=== PATIENT | male | born 1950 | race Caucasian/White ===

== ENCOUNTER 2018-06-27 17:06 | Emergency (ER) | payer OTHER, MEDICARE ==
[~2018-06-27] VITALS: Ht 177.8 cm; Wt 86.2 kg
[~2018-06-27 17:06] MED LIST: OMEP20CA4; ZOLP10TA2
--- NOTE | 2018-06-27 17:08 | NUR ---
Patient to ER bed 08 to gown for evaluation. Side rails up.
--- NOTE | 2018-06-27 17:08 | NUR ---
Pt brought by self ,A&Ox4, pt presents to ER with pain on lower back post mechanical fall at kitchen, pt denies KO, skin pink and warm, cap refill <3, VS WNL,respirations even and unlabored.
[2018-06-27 17:10] VITALS: BP_SYST 163
--- NOTE | 2018-06-27 17:19 | NUR ---
Dr Valdivia at bedside examining patient.
[2018-06-27] MEDS: KETOROLAC TROMETHAMINE 60 MG/2 ML VIAL IM ONE (17:39)
[2018-06-27 18:30] VITALS: BP_SYST 141
--- NOTE | 2018-06-27 18:30 | NUR ---
Patient given written and verbal discharge instructions and verbalizes understanding. ER MD discussed with patient the results and treatment provided. Patient in stable condition. ID arm band removed. Rx of NORCO AND FLEXERIL given. Patient educated on pain management and to follow up with PMD. Pain Scale 4/10; TOLERABLE VERBALIZED. NO OBJECTIVE S/SX OF PAIN OBSERVED. Opportunity for questions provided and answered. Medication side effect fact sheet provided. PATIENT IN NO ACUTE DISTRESS AND IN GOOD CONDITION. PT NOTED WITH A CANE AND WALKING WITH STABLE GAIT.
== END 2018-06-27 18:30 | disposition home or self-care (01) ==
LOC: SED 17:06
DX: S33.5XXA Sprain of ligaments of lumbar spine, initial encounter (principal); M47.896 Other spondylosis, lumbar region; Z88.8 Allergy status to other drugs, medicaments and biological substances; W01.0XXA Fall on same level from slipping, tripping and stumbling without subsequent striking against object, initial encounter; Y93.89 Activity, other specified; Y92.89 Other specified places as the place of occurrence of the external cause; Y99.8 Other external cause status
CPT/HCPCS: 72100; 96372; 99283; J1885

== ENCOUNTER 2020-01-27 13:55 | Emergency (ER) | payer OTHER, MEDICARE ==
[~2020-01-27] VITALS: Ht 177.8 cm; Wt 86.2 kg
[2020-01-27 14:07] VITALS: BP_SYST 121
[2020-01-27] MEDS ORDERED: MORPHINE SULFATE 10 MG/ML VIAL IM ONE (15:00)
[2020-01-27] MEDS ORDERED: ONDANSETRON 4 MG ODT TAB PO ONE (15:00)
[2020-01-27] MEDS ORDERED: KETOROLAC TROMETHAMINE 30 MG VIAL IM ONE (16:45)
[2020-01-27] MEDS ORDERED: CYCLOBENZAPRINE HCL 10 MG TABLET (FLEXERIL) PO ONE (16:45)
[2020-01-27 16:53] VITALS: BP_SYST 121
== END 2020-01-27 16:53 | disposition home or self-care (01) ==
LOC: SED 13:55
DX: S39.012A Strain of muscle, fascia and tendon of lower back, initial encounter (principal); Z88.1 Allergy status to other antibiotic agents; Z88.8 Allergy status to other drugs, medicaments and biological substances; W01.0XXA Fall on same level from slipping, tripping and stumbling without subsequent striking against object, initial encounter; Y93.89 Activity, other specified; Y92.89 Other specified places as the place of occurrence of the external cause; Y99.8 Other external cause status
CPT/HCPCS: 72100; 96372; 99284; J1885; J2270; Q0162

== ENCOUNTER 2020-11-01 17:11 | Emergency (ER) | payer OTHER, MEDICARE ==
[~2020-11-01] VITALS: Ht 177.8 cm; Wt 81.6 kg
[2020-11-01 17:15] VITALS: BP_SYST 127
[2020-11-01] MEDS ORDERED: MORPHINE SULFATE 10 MG/ML VIAL IM ONE (17:30)
[2020-11-01 19:09] LABS: BASOPHILS % (AUTO) 0.5 % (0.0-2.0); EOSINOPHILS # (AUTO) 0.1 K/uL (0.0-0.4); EOSINOPHILS % (AUTO) 1.8 % (0.0-4.0); HEMATOCRIT 45.3 % (36-54); HEMOGLOBIN 15.3 g/dL (14.0-18.0); LYMPHOCYTES # (AUTO) 0.8 K/uL (1.0-5.5); LYMPHOCYTES % (AUTO) 13.4 % (20.5-51.5); MEAN CORPUSCULAR HEMOGLOBIN 31 pg (27-31); MEAN CORPUSCULAR HGB CONC 34 % (32-36); MEAN CORPUSCULAR VOLUME 91 fL (79.0-98.0); MONOCYTES # (AUTO) 0.5 K/uL (0.0-1.0); NEUTROPHILS # (AUTO) 4.4 K/uL (1.8-7.7); NEUTROPHILS % (AUTO) 76.3 % (40.0-70.0); PLATELET COUNT (AUTO) 154 K/uL (130-430); RED BLOOD CELL COUNT(AUTO) 4.96 MIL/uL (4.2-6.2); WHITE BLOOD COUNT (AUTO) 5.8 K/uL (4.8-10.8)
[2020-11-01 19:19] LABS: CALCIUM 8.3 mg/dL (8.4-11.0); CREATININE 1.18 mg/dL (0.55-1.30); POTASSIUM 4.5 mmol/L (3.5-5.1)
[2020-11-01 19:25] LABS: C-REACTIVE PROTEIN QUANT 2.1 mg/dL (0-0.5)
[2020-11-01 19:29] LABS: ALBUMIN 3.1 g/dL (3.4-4.8); TOTAL BILIRUBIN 0.3 mg/dL (0.0-1.0)
[2020-11-01] MEDS ORDERED: MORPHINE 4 MG INJ. 4 MG/ML VIAL IM ONE (19:30)
[2020-11-01 19:38] LABS: BILIRUBIN,URINE NEGATIVE (NEGATIVE); BLOOD, URINE 2+ (NEGATIVE); CLARITY/URINE CLEAR (CLEAR); COLOR,URINE YELLOW (YELLOW); GLUCOSE,URINE NEGATIVE (NEGATIVE); KETONES,URINE NEGATIVE (NEGATIVE); LEUKOCYTE ESTERASE ,URINE NEGATIVE (NEGATIVE); NITRITE, URINE NEGATIVE (NEGATIVE); PH,URINE 5.5 (5.0-8.0); PROTEIN URINE NEGATIVE (NEGATIVE); UROBILINOGEN,URINE 0.2 (0.2-1.0)
[2020-11-01 19:56] LABS: ERYTHROCYTE SEDIMENTATION RATE 14 MM/HR (0-15)
[2020-11-01 19:56] LABS: BACTERIA,URINE FEW /HPF (None Seen); MUCUS,URINE 1+ /LPF (None Seen); WBC,URINE 0-3 /HPF (0-3)
[2020-11-01 20:10] VITALS: BP_SYST 127
== END 2020-11-01 20:10 | disposition home or self-care (01) ==
LOC: SED 17:11
DX: G89.29 Other chronic pain (principal); M54.5 Low back pain; Z88.8 Allergy status to other drugs, medicaments and biological substances; Z79.899 Other long term (current) drug therapy; W18.39XA Other fall on same level, initial encounter; Y93.89 Activity, other specified; Y92.89 Other specified places as the place of occurrence of the external cause; Y99.8 Other external cause status
CPT/HCPCS: 36415; 72128; 72131; 76376; 80053; 81000; 85025; 85651; 86140; 96372; 99285; J2270 ×2

== ENCOUNTER 2020-12-30 11:54 | Inpatient (IN) | payer OTHER, MEDICARE, SELFPAY ==
[~2020-12-30] VITALS: Ht 177.8 cm; Wt 81.6 kg
[2020-12-30 12:10] VITALS: BP_SYST 148
--- NOTE | 2020-12-30 12:14 | NUR ---
Patient to ER bed 2 to gown for evaluation. Side rails up. Report given to Carmen MEANS.
[2020-12-30] MEDS ORDERED: MORPHINE 4 MG INJ. 4 MG/ML VIAL IM ONE (12:15)
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
--- NOTE | 2020-12-30 12:25 | NUR ---
ER DR. KELLY AT THE BEDSIDE EXAMINING PT
[2020-12-30] MEDS ORDERED: KETOROLAC TROMETHAMINE 30 MG VIAL IVP ONE (13:15)
[2020-12-30 13:32] LABS: BASOPHILS % (AUTO) 0.1 % (0.0-2.0); EOSINOPHILS % (AUTO) 0.4 % (0.0-4.0); HEMATOCRIT 45.6 % (36-54); HEMOGLOBIN 15.1 g/dL (14.0-18.0); LYMPHOCYTES # (AUTO) 0.4 K/uL (1.0-5.5); LYMPHOCYTES % (AUTO) 4.5 % (20.5-51.5); MEAN CORPUSCULAR HEMOGLOBIN 31 pg (27-31); MEAN CORPUSCULAR HGB CONC 33 % (32-36); MEAN CORPUSCULAR VOLUME 93 fL (79.0-98.0); MONOCYTES # (AUTO) 0.5 K/uL (0.0-1.0); MONOCYTES % (AUTO) 5.9 % (1.7-9.3); NEUTROPHILS # (AUTO) 7.6 K/uL (1.8-7.7); NEUTROPHILS % (AUTO) 89.1 % (40.0-70.0); PLATELET COUNT (AUTO) 107 K/uL (130-430); RED BLOOD CELL COUNT(AUTO) 4.93 MIL/uL (4.2-6.2); RED CELL DISTRIBUTION WIDTH 16.5 % (9.0-15.0); WHITE BLOOD COUNT (AUTO) 8.5 K/uL (4.8-10.8)
--- NOTE | 2020-12-30 13:37 | NUR ---
Patient transported to radiology via GURNEY, accompanied by STAFF.
--- NOTE | 2020-12-30 13:39 | NUR ---
PT REQUESTING STRAIGHT CATH DUE TO URGE TO VOID. PT STATES HE CANNOT USE THE URINAL WHILE LAYING DOWN AND IS REFUSING TO STAND OR TURN DUE TO PAIN.
[2020-12-30 13:45] LABS: CALCIUM 7.9 mg/dL (8.4-11.0); CREATININE 0.98 mg/dL (0.55-1.30); POTASSIUM 3.8 mmol/L (3.5-5.1)
[2020-12-30 13:51] LABS: ALBUMIN 2.4 g/dL (3.4-4.8); TOTAL BILIRUBIN 0.8 mg/dL (0.0-1.0)
[2020-12-30] MEDS ORDERED: KETOROLAC TROMETHAMINE 60 MG/2 ML VIAL IM ONE (14:06)
--- NOTE | 2020-12-30 15:12 | NUR ---
COVID SWAB PERFORMED AT BEDSIDE
[2020-12-30] MEDS ORDERED: MORPHINE 4 MG INJ. 4 MG/ML VIAL IVP ONE (15:30)
[2020-12-30] MEDS ORDERED: HYDROcodone/ACETAMIN 10-325 MG TAB PO ONE (16:00)
--- NOTE | 2020-12-30 16:12 | NUR ---
PT PROVIDED WITH LUNCH TRAY PER REQUEST
--- NOTE | 2020-12-30 16:40 | NUR ---
PT REQUESTING LU CATH FOR VOIDING, REFUSING TO USE URINAL WHILE IN BED, UNABLE TO AMBULATE DUE TO PAIN AT THIS TIME. MADE AWARE
--- NOTE | 2020-12-30 16:40 | NUR ---
# 16 FR Hinojosa catheter with use of sterile technique. Immediate return of 10 cc CLEAR, YELLOW urine noted. Bedside drainage bag placed below level of bladder. Urine sample collected and sent to lab. Pt tolerated procedure WELL. Patient arrived with hinojosa in place, changed due to standard of practice prior to admission. Patient unable to toilet self.
[2020-12-30] MEDS ORDERED: METH4TAB17 PO (17:18)
[2020-12-30] MEDS ORDERED: TAMS-11 PO (17:18)
[2020-12-30] MEDS ORDERED: HYDR-3927 PO (17:18)
--- NOTE | 2020-12-30 17:18 | NUR ---
Medication reconciliation completed with information provided by PATIENT. Any prior medication reconciliation on file was reviewed and corrected.
--- NOTE | 2020-12-30 17:58 | NUR ---
Patient will be admitted to care of DR. RODRIGUEZ. Admitted to MS unit. Will go to room 111B. Belongings list completed. Complete and up to date summary report printed. SBAR report to be given at bedside with opportunity for questions.
--- NOTE | 2020-12-30 18:03 | NUR ---
Admission Note Received patient from ER with diagnosis of intractable back pain . Initial Plan of Care discussed-patient verbalized understanding. Family at bedside. Oriented to room, call light, pain management and safety.
[2020-12-30 18:22] VITALS: BP_SYST 116
[2020-12-30 19:00] VITALS: BP_SYST 116
--- NOTE | 2020-12-30 19:15 | NUR ---
pt.change of shift.pt.preents admit dx;s/p fall.pt.presents bedrest status.pt,presents hinojosa cath.pt.presents iv access intact. location lt.forearm.iv lock. general status stable.respiratory status stable;unlabored@room air.call light/telephone w/in access of the pt.
[2020-12-30 20:00] VITALS: BP_SYST 116
--- NOTE | 2020-12-30 20:00 | NUR ---
pt.assessed.v/s assessed values wnl.i have apprised the pt.that snacks/beverages are available w/in the shift.no requests posited @this hour. pt.has presents lower extremity weakness.pt.presents erythema location rt.ankle region.cutaneous integrity intact.pt.assessed for cleanliness.pt.repositioned.hinojosa cath intact to assess the placement of the foely cath.general status stable.respiratory status stable;unlabored:02-sat%=98%.call light/telephone placed w/in access of the pt.
--- NOTE | 2020-12-30 22:00 | NUR ---
pt.assessed.pt.presents quiescent affect;calm.pt.assessed for cleanliness pt.repositioned.hinojosa cath intact urine content present. iv access intact.no c/o pain,nausea.no requests posited@this hour.call light/telephone placed w/in access of the pt.
[2020-12-30] MEDS ORDERED: traZODone HCL 50 MG TABLET (DESYREL) PO PRN (23:15)
[2020-12-31] VITALS: BP_SYST 112
--- NOTE | 2020-12-31 | NUR ---
pt.assessed.v/s assessed values wnl.no c/o pain,nausea.hinojosa cath intact urine content present.pt.repositioned.call light/ telephone placed w/in access of the pt.
--- NOTE | 2020-12-31 02:00 | NUR ---
pt.assessed.hinojosa cath intact urine content presents.pt.presents quiescent affect;calm,somnolent.pt.repositioned.no c/o pain,nausea.no requests posited@this hour.call light/telephone placed w/in access of the pt.
--- NOTE | 2020-12-31 04:00 | NUR ---
pt.assessed.pt.presents quiescent affect;calm,somnolent.per flacc pain mgx pt.absent facial grimaces/body posturing. pt.assessed for cleanliness.pt.repositioned.general status.respiratory status stable.call light/telephone placed w/in access of the pt.
--- NOTE | 2020-12-31 06:21 | NUR ---
pt.assessed.pt.assessed for cleanliness.pt.repositioned.pt.stated pain present but refused po medication;norco@this hour. hinojosa cath intact urine content present.no requests posited@this hour.call light/telephone placed w/in access of the pt.
--- NOTE | 2020-12-31 07:44 | NUR ---
ATTENDING MD DR HEATH WAS PAGED DIRECTLY, RE: MEDICATIONS.
[2020-12-31 08:00] VITALS: BP_SYST 123
[2020-12-31] MEDS ORDERED: NALOXONE HCL 0.4 MG/ML AMP (NARCAN) IVP PRN (08:00)
--- NOTE | 2020-12-31 09:29 | NUR ---
Nutrition Update Chaparro Scale 17 noted. Pt admitted for intractable back pain. Diet: regular BMI: 25.8 kg/m2 RD to follow per nutrition care standards.
--- NOTE | 2020-12-31 11:35 | NUR ---
Note Pt was assisted in sitting up in bed for breakfast. Pain tolerable if not moving in bed. Pt worked with PT and now resting in bed. Miramontes catheter intact and draining. Call light within reach.
[2020-12-31 12:29] VITALS: BP_SYST 116
--- NOTE | 2020-12-31 12:50 | NUR ---
Note Pt's at bedside. Pt was given 2 cups of prune juice to help with constipation.
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
[2020-12-31 16:17] VITALS: BP_SYST 121
--- NOTE | 2020-12-31 17:25 | NUR ---
NOTE Dr Carter on the floor to assess pt and check labs/tests at this time.
[2020-12-31] MEDS ORDERED: OXYCODONE/ACETAMINOPHEN 5-325 TABLET PO PRN (17:45)
[2020-12-31] MEDS ORDERED: ONDANSETRON HCL 4 MG/2 ML VIAL IVP PRN (17:45)
--- NOTE | 2020-12-31 18:30 | NUR ---
Note Pt lying in bed after eating his dinner. States he feels like bowel movement is about to happen, just difficult to pass at this time. Pt was checked on q1' and PRN all shift for needs and care. Pt's bed in low position and bed alarm on. Miramontes catheter intact and draining. Call light within reach.
[2020-12-31] MEDS: BISACODYL 5 MG TABLET.DR (DULCOLAX) PO PRN (18:46)
[2020-12-31] MEDS: DOCUSATE SODIUM 100 MG CAPSULE PO SCH (18:46)
--- NOTE | 2020-12-31 19:10 | NUR ---
OPENING NOTES RECEIVED PATIENT RESTING IN BED, NO SIGNS OF DISTRESS NOTED. LU CATHETER DRAINING BY GRAVITY, NO KINKS, NO LOOPS, BAG NOT TOUCHING THE FLOOR. CALL LIGHT WITHIN REACH, PATIENT DEMONSTRATES PROPER CALL LIGHT USAGE, BED AT LOWEST POSITION, BED ALARM ON, BED LOCKED. FAMILY AT BEDSIDE. FALL, ASPIRATION, SAFETY, AND RESPIRATORY PRECAUTIONS IN PLACE. WILL CONTINUE TO MONITOR.
[2020-12-31 20:00] VITALS: BP_SYST 126
[2020-12-31] MEDS: NORMAL SALINE 5 ML DISP.SYRIN IVF SCH (21:44)
[2020-12-31] MEDS ORDERED: NORMAL SALINE 5 ML DISP.SYRIN IVF SCH (22:00)
[2021-01-01 00:08] VITALS: BP_SYST 106
--- NOTE | 2021-01-01 05:08 | NUR ---
CONSULT: CONSULT CALLED FOR DR. MARKHAM I SPOKE WITH MISAEL TRAN REASON FOR CONSULT: INTRACTABLE BACK PAIN REQUESTING CONSULT: Roro CAMACHO [employer] OPERATOR PHONE NUMBER: [phone]
[2021-01-01] MEDS: NORMAL SALINE 5 ML DISP.SYRIN IVF SCH ×2 (05:44→21:43)
[2021-01-01] MEDS: HYDROcodone/ACETAMIN 10-325 MG TAB PO PRN (05:48)
--- NOTE | 2021-01-01 06:41 | NUR ---
CLOSING NOTES PATIENT RESTING IN BED, NO SIGNS OF DISTRESS NOTED. LU CATHETER DRAINING BY GRAVITY, NO KINKS, NO LOOPS, BAG NOT TOUCHING THE FLOOR. CALL LIGHT WITHIN REACH, PATIENT DEMONSTRATED PROPER CALL LIGHT USAGE, BED AT LOWEST POSITION, BED ALARM ON, BED LOCKED. FALL, ASPIRATION, SAFETY, AND RESPIRATORY PRECAUTIONS IN PLACE THROUGHOUT SHIFT. ALL NEEDS MET THROUGHOUT SHIFT. WILL ENDORSE CARE TO ONCOMING SHIFT.
[2021-01-01 07:00] LABS: BASOPHILS % (AUTO) 0.4 % (0.0-2.0); EOSINOPHILS % (AUTO) 0.5 % (0.0-4.0); HEMATOCRIT 42.5 % (36-54); HEMOGLOBIN 14.7 g/dL (14.0-18.0); LYMPHOCYTES # (AUTO) 0.4 K/uL (1.0-5.5); MEAN CORPUSCULAR HEMOGLOBIN 32 pg (27-31); MEAN CORPUSCULAR HGB CONC 35 % (32-36); MEAN CORPUSCULAR VOLUME 92 fL (79.0-98.0); MONOCYTES # (AUTO) 0.3 K/uL (0.0-1.0); MONOCYTES % (AUTO) 5.1 % (1.7-9.3); NEUTROPHILS # (AUTO) 5.3 K/uL (1.8-7.7); PLATELET COUNT (AUTO) 101 K/uL (130-430); RED BLOOD CELL COUNT(AUTO) 4.62 MIL/uL (4.2-6.2); RED CELL DISTRIBUTION WIDTH 16.3 % (9.0-15.0)
[2021-01-01 07:34] LABS: CALCIUM 8.2 mg/dL (8.4-11.0); CREATININE 0.98 mg/dL (0.55-1.30); POTASSIUM 4.3 mmol/L (3.5-5.1)
[2021-01-01 08:00] VITALS: BP_SYST 112
[2021-01-01] MEDS: methylPREDNISolone 4 MG TABLET PO SCH (08:20)
[2021-01-01] MEDS: PANTOPRAZOLE SODIUM 40 MG TAB PO SCH (08:20)
[2021-01-01] MEDS: TAMSULOSIN HCL 0.4 MG CAP PO SCH (08:20)
[2021-01-01] MEDS: LIDOCAINE PATCH 5% 1 EA TP SCH (08:20)
[2021-01-01] MEDS ORDERED: OMEPRAZOLE Non-Formulary 20 MG CAPSULE.DR PO SCH (09:00)
--- NOTE | 2021-01-01 09:30 | NUR ---
rounds dr zacarias called and inquired re the patient.awating to come and see patient.
[2021-01-01 12:23] VITALS: BP_SYST 111
--- NOTE | 2021-01-01 15:03 | NUR ---
Dietitian Recommendations * Regular, lactose-free diet LUIS RD Please refer to Nutrition Assessment for details. Addendum: 01/01/21 at [address] Amended: Links added.
[2021-01-01 15:16] VITALS: BP_SYST 115
--- NOTE | 2021-01-01 16:36 | NUR ---
Patient referred to [facility] for acute [facility]. Received a call from Dee at [facility] [phone]. She stated pt is very low level for acute rehab. They do not have a bed until Monday- they will re evaluate the patient on Monday.
--- NOTE | 2021-01-01 18:30 | NUR ---
closing notes pt resting quietly at this time.call light within reached. bed to the lowest position.
[2021-01-01 20:00] VITALS: BP_SYST 118
[2021-01-01] MEDS: DOCUSATE SODIUM 100 MG CAPSULE PO SCH (21:43)
[2021-01-01] MEDS: ACETAMINOPHEN 325 MG TABLET PO PRN (21:43)
--- NOTE | 2021-01-02 00:10 | NUR ---
PATIENT RESTING, EYES CLOSED. NO DISTRESS NOTED. CALL LIGHT WITHIN REACH. WILL CONTINUE TO MONITOR.
[2021-01-02 00:55] VITALS: BP_SYST 113
[2021-01-02] MEDS: NORMAL SALINE 5 ML DISP.SYRIN IVF SCH ×3 (05:59→20:13)
--- NOTE | 2021-01-02 06:26 | NUR ---
CLOSING NOTES PATIENT RESTING IN BED, NO SIGNS OF DISTRESS NOTED. LU CATHETER DRAINING BY GRAVITY, NO KINKS, NO LOOPS, BAG NOT TOUCHING THE FLOOR. CALL LIGHT WITHIN REACH, PATIENT DEMONSTRATED PROPER CALL LIGHT USAGE, BED AT LOWEST POSITION, BED ALARM ON, BED LOCKED. FALL, ASPIRATION, SAFETY, AND RESPIRATORY PRECAUTIONS IN PLACE THROUGHOUT SHIFT. WILL ENDORSE CARE TO ONCOMING SHIFT.
--- NOTE | 2021-01-02 07:56 | NUR ---
OPENING NOTE RECEIVED REPORT FROM NIGHT RN. PATIENT IS RESTING IN BED, ON ROOM AIR AND TOLERATING WELL WITH NO SIGNS OF SHORTNESS OF BREATH NOTED. IV IS PATENT, SALINE LOCKED WITH NO SIGNS OF INFILTRATION NOTED. COMPLAINING OF MILD PAIN, REQUESTING TYLENOL. BED LOCKED AND IN LOWEST POSITION. CALL LIGHT WITHIN REACH. WILL CONTINUE TO MONITOR.
[2021-01-02 08:00] VITALS: BP_SYST 130
[2021-01-02] MEDS: PANTOPRAZOLE SODIUM 40 MG TAB PO SCH (08:05)
[2021-01-02] MEDS: methylPREDNISolone 4 MG TABLET PO SCH (08:05)
[2021-01-02] MEDS: TAMSULOSIN HCL 0.4 MG CAP PO SCH (08:05)
[2021-01-02] MEDS: LIDOCAINE PATCH 5% 1 EA TP SCH (08:05)
[2021-01-02] MEDS: ACETAMINOPHEN 325 MG TABLET PO PRN (08:06)
[2021-01-02 12:07] VITALS: BP_SYST 108
[2021-01-02 15:25] VITALS: BP_SYST 104
--- NOTE | 2021-01-02 18:28 | NUR ---
CLOSING NOTE PATIENT IS RESTING IN BED, ON ROOM AIR AND TOLERATING WELL WITH NO SIGNS OF SHORTNESS OF BREATH NOTED. IV IS PATENT, SALINE LOCKED WITH NO SIGNS OF INFILTRATION NOTED. NO COMPLAINTS OF PAIN AT THIS TIME. BED LOCKED AND IN LOWEST POSITION. CALL LIGHT WITHIN REACH. WILL ENDORSE TO NIGHT NURSE.
--- NOTE | 2021-01-02 19:40 | NUR ---
OPENING NOTE RCVD PT FROM DAYSHIFT RN. PT AWAKE ALERT AND ORIENTED X4. BREATHING ON ROOM AIR NO SIGNS OF DISTRESS. IV ON LAC #20 INFUSING ORDERED FLUIDS. NO INFILTRATION NOTED. PT REPORTED HAD A BOWEL MOVEMENT YESTERDAY. LU DRAINING TO GRAVITY. BED LOCKED IN LOWEST POSITION. CALL LIGHT WITH PT. WILL CONTINUE TO MONITOR.
[2021-01-02 20:00] VITALS: BP_SYST 112
[2021-01-02] MEDS: DOCUSATE SODIUM 100 MG CAPSULE PO SCH (20:13)
--- NOTE | 2021-01-02 20:40 | NUR ---
RN NOTE PT VITAL SIGNS STABLE. NO S/S OF DISTRESS AT THIS TIME. PT REQUEST PAIN MEDICATION FOR BACK PAIN. WILL ADMINISTER AND REASSESS AND MONITOR.
[2021-01-02] MEDS: ZOLPIDEM TARTRATE 5 MG TABLET PO PRN (22:50)
--- NOTE | 2021-01-02 23:05 | NUR ---
RN NOTE PT REQUEST SLEEPING MEDICATION. WILL ADMINISTER AMBIEN PRN AND CONTINUE TO MONITOR PT.
[2021-01-03 00:10] VITALS: BP_SYST 104
--- NOTE | 2021-01-03 00:40 | NUR ---
RN NOTE VITAL SIGNS STABLE. WILL CTM.
[2021-01-03] MEDS: NORMAL SALINE 5 ML DISP.SYRIN IVF SCH ×3 (05:27→21:44)
--- NOTE | 2021-01-03 06:44 | NUR ---
CLOSING NOTE PT AWAKE ALERT AND ORIENTED X4 RESTING IN BED. NO S/S OF DISTRESS THROUGHOUT SHIFT. ALL NEEDS MET. BREATHING ON ROOM AIR NO SIGNS OF DISTRESS. IV ON LAC #20 INFUSING ORDERED FLUIDS. NO INFILTRATION NOTED. LU DRAINING TO GRAVITY. BED LOCKED IN LOWEST POSITION. CALL LIGHT WITH PT. WILL ENDORSE TO DAYSHIFT RN.
--- NOTE | 2021-01-03 07:40 | NUR ---
OPENING NOTE RECEIVED REPORT FROM NIGHT RN. PATIENT IS RESTING IN BED, ON ROOM AIR AND TOLERATING WELL WITH NO SIGNS OF SHORTNESS OF BREATH NOTED. IV IS PATENT, SALINE LOCKED WITH NO SIGNS OF INFILTRATION NOTED. BED LOCKED AND IN LOWEST POSITION. CALL LIGHT WITHIN REACH. WILL CONTINUE TO MONITOR.
[2021-01-03 08:00] VITALS: BP_SYST 121
[2021-01-03] MEDS: TAMSULOSIN HCL 0.4 MG CAP PO SCH (08:00)
[2021-01-03] MEDS: methylPREDNISolone 4 MG TABLET PO SCH (08:00)
[2021-01-03] MEDS: LIDOCAINE PATCH 5% 1 EA TP SCH (08:00)
[2021-01-03] MEDS: PANTOPRAZOLE SODIUM 40 MG TAB PO SCH (08:00)
[2021-01-03] MEDS: ACETAMINOPHEN 325 MG TABLET PO PRN ×2 (11:01→18:59)
[2021-01-03 11:29] VITALS: BP_SYST 120
[2021-01-03 15:31] VITALS: BP_SYST 113
--- NOTE | 2021-01-03 19:10 | NUR ---
REPORT RECEIVED FROM DAY SHIFT NURSE. PT IS RESTING COMFORTABLY IN BED. NO C/O PAIN OR DISCOMFORT. CALL LIGHT IS WITH PT AND BED ALARM IS ON.
--- NOTE | 2021-01-03 19:32 | NUR ---
PT C/O 5/10 LEFT CHEST PAIN. NO DIFFICULTY BREATHING NOTED. VSS. TEMP 97.0, HR 84, RR 18, BP 124/75 AND OXYGEN SAT ON ROOM AIR 97%. PT APPEARS ANXIOUS. WILL NOTIFY DR. Emma HEATH. Addendum: 01/03/21 at 2221 by Kathi Bright RN PT WAS GIVEN OXYGEN 2L/NC FOR COMFORT.
--- NOTE | 2021-01-03 19:35 | NUR ---
Paged Dr. Carter. Mekhi
--- NOTE | 2021-01-03 19:40 | NUR ---
DR. Emma HEATH CALLED BACK AND WAS INFORMED PT IS C/O 5/10 LEFT CHEST PAIN. PT'S VITAL SIGNS WERE READ TO DR. ONEILL. NEW ORDERS RECEIVED FRO STAT EKG, TROPONIN AND ONE TIME DOSE OF ASPIRIN 325MG PO.
[2021-01-03] MEDS ORDERED: ASPIRIN 325 MG TABLET PO ONE (19:45)
[2021-01-03 20:00] VITALS: BP_SYST 124
--- NOTE | 2021-01-03 20:42 | NUR ---
RESULTS OF EKG AND STAT TROPONIN WERE RELAYED TO DR. Emma HEATH. NO NEW ORDERS GIVEN. PT IS RESTING QUIETLY IN BED AND DENIES CHEST PAIN AT THIS TIME.
[2021-01-03] MEDS: GABAPENTIN 300 MG CAPSULE PO SCH (21:00)
[2021-01-03] MEDS: DOCUSATE SODIUM 100 MG CAPSULE PO SCH (21:43)
[2021-01-03] MEDS: ZOLPIDEM TARTRATE 5 MG TABLET PO PRN (21:49)
[2021-01-04 02:54] VITALS: BP_SYST 120
[2021-01-04] MEDS: NORMAL SALINE 5 ML DISP.SYRIN IVF SCH ×3 (05:41→20:46)
--- NOTE | 2021-01-04 06:31 | NUR ---
PT IS AWAKE AND RESTING COMFORTABLY IN BED. ALL PT'S NEEDS WERE ATTENDED TO. WILL ENDORSE TO DAY SHIFT NURSE.
[2021-01-04 06:46] LABS: BASOPHILS % (AUTO) 0.3 % (0.0-2.0); EOSINOPHILS % (AUTO) 0.5 % (0.0-4.0); HEMATOCRIT 40.2 % (36-54); HEMOGLOBIN 14.1 g/dL (14.0-18.0); LYMPHOCYTES # (AUTO) 0.4 K/uL (1.0-5.5); LYMPHOCYTES % (AUTO) 6.8 % (20.5-51.5); MEAN CORPUSCULAR HEMOGLOBIN 32 pg (27-31); MEAN CORPUSCULAR HGB CONC 35 % (32-36); MEAN CORPUSCULAR VOLUME 91 fL (79.0-98.0); MONOCYTES # (AUTO) 0.4 K/uL (0.0-1.0); MONOCYTES % (AUTO) 5.7 % (1.7-9.3); NEUTROPHILS # (AUTO) 5.5 K/uL (1.8-7.7); NEUTROPHILS % (AUTO) 86.7 % (40.0-70.0); PLATELET COUNT (AUTO) 126 K/uL (130-430); RED BLOOD CELL COUNT(AUTO) 4.41 MIL/uL (4.2-6.2); RED CELL DISTRIBUTION WIDTH 15.6 % (9.0-15.0); WHITE BLOOD COUNT (AUTO) 6.3 K/uL (4.8-10.8)
[2021-01-04 06:59] LABS: CREATININE 0.91 mg/dL (0.55-1.30); POTASSIUM 3.7 mmol/L (3.5-5.1); TOTAL BILIRUBIN 0.7 mg/dL (0.0-1.0)
--- NOTE | 2021-01-04 07:00 | NUR ---
ROUND Patient resting in the bed. No acute distress. Safety measure maintained. Call light within reached. Bed locked in low position, side rails up, bed alarm on. Continue to monitor.
--- NOTE | 2021-01-04 07:32 | NUR ---
OPENING NOTE Patient resting in the bed. No acute distress. Skin warm and dry to touch. SL intact to LAC, no redness, no swelling, patent. Discussed the safety issue, use call light when needs help, and plan of care, verbally understanding. Safety measure maintained. Call light within reached. Bed locked in low position, side rails up, bed alarm on. Will continue to monitor.
[2021-01-04 08:00] VITALS: BP_SYST 106
[2021-01-04] MEDS: methylPREDNISolone 4 MG TABLET PO SCH (08:44)
[2021-01-04] MEDS: LIDOCAINE PATCH 5% 1 EA TP SCH (08:44)
[2021-01-04] MEDS: TAMSULOSIN HCL 0.4 MG CAP PO SCH (08:45)
[2021-01-04] MEDS: PANTOPRAZOLE SODIUM 40 MG TAB PO SCH (08:45)
--- NOTE | 2021-01-04 08:54 | NUR ---
AM SCHEDULE MED GIVEN. PATIENT TOLERATED WELL.
[2021-01-04 11:31] VITALS: BP_SYST 125
--- NOTE | 2021-01-04 12:02 | NUR ---
PT WORKING WITH PATIENT AT THIS TIME.
--- NOTE | 2021-01-04 12:37 | NUR ---
cm note faxed updated PT notes to [facility] for admission reevaluation.
--- NOTE | 2021-01-04 15:19 | NUR ---
ROUND Patient resting in the bed and watching TV. No acute distress. Safety measure maintained. Call light within reached. Bed locked in low position, side rails up, bed alarm on. Continue to monitor.
[2021-01-04 15:20] VITALS: BP_SYST 115
--- NOTE | 2021-01-04 18:39 | NUR ---
SEEN AND EXAMINED BY LISSA CAMACHO WITH ORDER RECEIVED.
--- NOTE | 2021-01-04 18:44 | NUR ---
CLOSING NOTE Patient resting in the bed. No acute distress. Skin warm and dry to touch. SL intact to LAC, no redness, no swelling, patent. F/C intact, drain gravity. All needs met. Safety measure maintained. Call light within reached. Bed locked in low position, side rails up, bed alarm on. Will endorse to night nurse.
[2021-01-04 20:36] VITALS: BP_SYST 111
[2021-01-04] MEDS: DOCUSATE SODIUM 100 MG CAPSULE PO SCH (20:42)
[2021-01-04] MEDS: ACETAMINOPHEN 325 MG TABLET PO PRN (20:44)
[2021-01-04] MEDS: GABAPENTIN 300 MG CAPSULE PO SCH (20:46)
--- NOTE | 2021-01-04 20:46 | NUR ---
[facility] PATIENT DUE MEDICATIONS GIVEN. VITAL SIGNS STABLE. MEDICATED WITH TYLENOL FOR C/O BACK PAIN.
[2021-01-04] MEDS: ZOLPIDEM TARTRATE 5 MG TABLET PO PRN (22:21)
--- NOTE | 2021-01-04 22:21 | NUR ---
SLEEP PATIENT MEDICATED WITH AMBIEN PER PATIENT REQUEST. BED ALARM ON.
--- NOTE | 2021-01-05 00:15 | NUR ---
ROUNDS PATIENT RESTING IN BED. NO DISTRESS NOTED.
[2021-01-05 01:09] VITALS: BP_SYST 112
--- NOTE | 2021-01-05 02:25 | NUR ---
ROUNDS PATIENT BREATHING UNLABORED WITH INTERMITTENT SOFT SNORING NOTED.
--- NOTE | 2021-01-05 04:15 | NUR ---
ROUNDS PATIENT RESTING IN BED. BREATHING UNLABORED. BED ALARM ON.
[2021-01-05] MEDS: NORMAL SALINE 5 ML DISP.SYRIN IVF SCH ×2 (06:00→14:18)
--- NOTE | 2021-01-05 06:37 | NUR ---
CLOSING NOTES NO CHANGE IN PATIENT CONDITION. PATIENT NEEDS ATTENDED.
[2021-01-05 08:00] VITALS: BP_SYST 122
[2021-01-05] MEDS: LIDOCAINE PATCH 5% 1 EA TP SCH (08:27)
[2021-01-05] MEDS: methylPREDNISolone 4 MG TABLET PO SCH (08:27)
[2021-01-05] MEDS: TAMSULOSIN HCL 0.4 MG CAP PO SCH (08:27)
[2021-01-05] MEDS: PANTOPRAZOLE SODIUM 40 MG TAB PO SCH (08:27)
[2021-01-05] MEDS: BISACODYL 5 MG TABLET.DR (DULCOLAX) PO PRN (08:44)
--- NOTE | 2021-01-05 08:45 | NUR ---
CONSTIPATION PATIENT COMPLAINING OF "NO BOWEL MOVEMENT IN 4 DAYS'". GAVE DUCOLAX 10 MG PRN PO ORDERED. WILL MONITOR.
--- NOTE | 2021-01-05 10:00 | NUR ---
CM note: informed pt and spouse that [facility] is not accepting for admission. Pt and spouse want to discuss snf vs HH/PT and will let me know this afternoon.
[2021-01-05 11:26] VITALS: BP_SYST 126
--- NOTE | 2021-01-05 14:24 | NUR ---
CM note: Met with pt and spouse at bedside, snf of choice provided: [facility], [facility], [facility] and other snf of their chosen in the area. The pt requested [facility], saying he has a doctor friend who works there, so he will be under his doctor friend care. >> Faxed the [facility] referral package to [facility]. CM to f/u.: acceptance and bed assignment.
--- NOTE | 2021-01-05 14:45 | NUR ---
Bowel movement Patient had large bowel movement. Cleaned and repositioned. Will monitor.
[2021-01-05 15:57] VITALS: BP_SYST 106
--- NOTE | 2021-01-05 16:08 | NUR ---
CM note: Per [facility]: the patient is accepted , gave assigned bed to 115 , Pradip Romeo is the accepting md. >> Booked with [facility] JESS[facility] for package pick up time between 7-7:30 pm. Patient and spouse made aware, CLARY Baker aware.
[2021-01-05 16:21] VITALS: BP_SYST 106
--- NOTE | 2021-01-05 17:50 | NUR ---
LU REMOVED Lu catheter removed as ordered. Patient tolerated well and voided since. Will monitor.
[2021-01-05] MEDS: HYDROcodone/ACETAMIN 10-325 MG TAB PO PRN (18:22)
--- NOTE | 2021-01-05 18:32 | NUR ---
CLOSING NOTE/ PAIN PATIENT IS RESTING IN BED, ON ROOM AIR AND TOLERATING WELL WITH NO SIGNS OF SHORTNESS OF BREATH NOTED. IV REMOVED FOR DISCHARGE. PATIENT COMPLAINING OF 6/10 PAIN, REQUESTING NORCO. ADMINISTERED NORCO 10-325 MG PO. PATIENT TOLERATED WELL, NOW RESTING IN BED WITH NO DISTRESS NOTED. BED LOCKED AND IN LOWEST POSITION. CALL LIGHT WITHIN REACH. WILL ENDORSE TO NIGHT NURSE.
--- NOTE | 2021-01-05 19:40 | NUR ---
OPENING NOTES PATIENT FOR DISCHARGE TONIGHT WAITING FOR AMBULANCE FOR TRANSPORT. PATIENT AT BEDSIDE. VITAL SIGNS STABLE.
[2021-01-05 19:41] VITALS: BP_SYST 119
--- NOTE | 2021-01-05 20:05 | NUR ---
AMBULANCE AMBULANCE HERE REPORT GIVEN.
--- NOTE | 2021-01-05 20:22 | NUR ---
DISCHARGED PATIENT LEFT FACILITY IN STABLE CONDITION ACCOMPANIED BY AND AMBULANCE PERSONNEL.
== END 2021-01-05 20:22 | DRG 551 ==
LOC: SED 11:54 → SMU 15:48
PROVIDERS: ADMIT Preventive Medicine Preventive Medicine/Occupational Environmental Medicine; ATTEND Preventive Medicine Preventive Medicine/Occupational Environmental Medicine
DX: M54.9 Dorsalgia, unspecified (principal); E43 Unspecified severe protein-calorie malnutrition; G89.29 Other chronic pain; G47.00 Insomnia, unspecified; E83.52 Hypercalcemia; R73.9 Hyperglycemia, unspecified; E88.09 Other disorders of plasma-protein metabolism, not elsewhere classified; D69.6 Thrombocytopenia, unspecified; Z20.822 Contact with and (suspected) exposure to COVID-19; Z88.2 Allergy status to sulfonamides; Z88.8 Allergy status to other drugs, medicaments and biological substances; Z79.899 Other long term (current) drug therapy; Z68.25 Body mass index [BMI] 25.0-25.9, adult
CPT/HCPCS: 36415; 72131; 76376; 80048; 80053; 84484; 85025; 93005; 96372; 96374; 96375; 97110-GP; 97112-GP; 97116-GP; 97163-GP; 97530-GP; 99285; J1885; J2270; J7509

== ENCOUNTER 2021-04-26 09:42 | Emergency (ER) | payer OTHER, MEDICARE, SELFPAY ==
[~2021-04-26] VITALS: Ht 177.8 cm; Wt 657.7 kg
[~2021-04-26 09:42] MED LIST changes: +HYDR-3927 PO; +METH4TAB17 PO; +TAMS-11 PO
[2021-04-26 09:50] VITALS: BP_SYST 95
--- NOTE | 2021-04-26 09:50 | NUR ---
Pt triaged and placed in waiting room
[2021-04-26 10:33] LABS: BILIRUBIN,URINE NEGATIVE (NEGATIVE); BLOOD, URINE 2+ (NEGATIVE); CLARITY/URINE CLEAR (CLEAR); COLOR,URINE YELLOW (YELLOW); GLUCOSE,URINE NEGATIVE (NEGATIVE); KETONES,URINE NEGATIVE (NEGATIVE); LEUKOCYTE ESTERASE ,URINE NEGATIVE (NEGATIVE); NITRITE, URINE NEGATIVE (NEGATIVE); PROTEIN URINE NEGATIVE (NEGATIVE); UROBILINOGEN,URINE 0.2 (0.2-1.0)
[2021-04-26 10:53] LABS: BACTERIA,URINE RARE /HPF (None Seen); WBC,URINE 0-3 /HPF (0-3)
[2021-04-26 10:54] LABS: MUCUS,URINE 1+ /LPF (None Seen)
--- NOTE | 2021-04-26 11:13 | NUR ---
PT COMES WITH WITH C/O DYSUIRA SINCE 0200 THIS MORNING, STATES GOIONG TO BATHROOM OVER 20 TIMES ALREADY, VERY LITTLE OUTPUT. DENIES FLANK PAIN, DENIES ANY FEVERS/CHILLS. SMALL AMOUNT OF URINE COLLETED AND SENT TO LAB. WAITING TO BE SEEN BY ER MD FLORES.
--- NOTE | 2021-04-26 11:30 | NUR ---
ER Dr. Canchola at bedside examining patient.
[2021-04-26] MEDS ORDERED: PHENAZOPYRIDINE HCL 100 MG TABLET PO ONE (11:45)
[2021-04-26] MEDS ORDERED: LIDOCAINE VISCOUS 2%, 15 ML UDC MM ONE (12:00)
--- NOTE | 2021-04-26 12:14 | NUR ---
# 16 FR Hinojosa catheter with use of sterile technique. Immediate return of YELLOW CR cc urine noted. Bedside drainage bag placed below level of bladder. Urine sample collected and sent to lab. Pt tolerated procedure . Patient arrived with hinojosa in place, changed due to standard of practice prior to admission. Patient unable to toilet self.
[2021-04-26] MEDS ORDERED: PHEN-890 PO (13:17)
[2021-04-26] MEDS ORDERED: HYDROcodone/ACETAMIN 10-325 MG TAB PO ONE (13:30)
--- NOTE | 2021-04-26 13:36 | NUR ---
PT C/O PAIN TO LOWE BACK, MORE WITH MOEVEMENT. DR FRANKLIN INFORED, ORDERS RECEIVED, BUT PT STATES HE HAS SOME AT HOME AND WILL TTAKE IT THEN. WAS CALLED AND WILL BE HERE TO PICK HIM UP IN LESS THAN 30 MINUTES.
--- NOTE | 2021-04-26 14:10 | NUR ---
Patient given written and verbal discharge instructions and verbalizes understanding. ER MD discussed with patient the results and treatment provided. Patient in stable condition. ID arm band removed. Rx of PYRIDIUM given. Patient educated on pain management and to follow up with PMD. Pain Scale . Opportunity for questions provided and answered. Medication side effect fact sheet provided.
[2021-04-26 14:11] VITALS: BP_SYST 102
== END 2021-04-26 14:10 | disposition home or self-care (01) ==
LOC: SED 09:42
DX: R33.9 Retention of urine, unspecified (principal); R30.0 Dysuria
CPT/HCPCS: 51702; 81000; 99284; J2001

== ENCOUNTER 2021-04-29 14:17 | Emergency (ER) | payer OTHER, MEDICARE, SELFPAY ==
[~2021-04-29] VITALS: Ht 177.8 cm; Wt 81.6 kg
[~2021-04-29 14:17] MED LIST changes: +PHEN-890 PO
[2021-04-29 14:20] VITALS: BP_SYST 131
--- NOTE | 2021-04-29 14:20 | NUR ---
Patient to ER bed 8 to gown for evaluation. Side rails up.
--- NOTE | 2021-04-29 14:25 | NUR ---
PT BIB FROM HOME C/O URINARY CATHETER PLACED ON MONDAY LEAKING AND IRRITATED. PT STATES THAT HIS PRIMARY IS OUT OF TOWN AND HE IS UNABLE TO MAKE AN APPOINTMENT. PT REQUESTING TO HAVE CATHETER REMOVED. PT IS AAOX4, V/S STABLE
--- NOTE | 2021-04-29 14:30 | NUR ---
ER DR. KIMBALL AT THE BEDSIDE EXAMINING PT
[2021-04-29 15:20] LABS: BASOPHILS % (AUTO) 0.2 % (0.0-2.0); EOSINOPHILS # (AUTO) 0.1 K/uL (0.0-0.4); EOSINOPHILS % (AUTO) 0.9 % (0.0-4.0); HEMATOCRIT 40.3 % (36-54); HEMOGLOBIN 13.8 g/dL (14.0-18.0); LYMPHOCYTES # (AUTO) 0.6 K/uL (1.0-5.5); LYMPHOCYTES % (AUTO) 7.4 % (20.5-51.5); MEAN CORPUSCULAR HEMOGLOBIN 31 pg (27-31); MEAN CORPUSCULAR HGB CONC 34 % (32-36); MEAN CORPUSCULAR VOLUME 89 fL (79.0-98.0); MONOCYTES # (AUTO) 0.7 K/uL (0.0-1.0); MONOCYTES % (AUTO) 8.6 % (1.7-9.3); NEUTROPHILS # (AUTO) 6.2 K/uL (1.8-7.7); NEUTROPHILS % (AUTO) 82.9 % (40.0-70.0); PLATELET COUNT (AUTO) 132 K/uL (130-430); RED BLOOD CELL COUNT(AUTO) 4.52 MIL/uL (4.2-6.2); RED CELL DISTRIBUTION WIDTH 13.1 % (9.0-15.0); WHITE BLOOD COUNT (AUTO) 7.5 K/uL (4.8-10.8)
[2021-04-29 15:35] LABS: CREATININE 0.98 mg/dL (0.55-1.30)
--- NOTE | 2021-04-29 15:35 | NUR ---
PT ABLE TO VOID USING URINAL, SPECIMEN COLLECTED
[2021-04-29 16:01] LABS: BILIRUBIN,URINE NEGATIVE (NEGATIVE); BLOOD, URINE 3+ (NEGATIVE); CLARITY/URINE SL CLOUDY (CLEAR); COLOR,URINE YELLOW (YELLOW); GLUCOSE,URINE TRACE (NEGATIVE); KETONES,URINE NEGATIVE (NEGATIVE); LEUKOCYTE ESTERASE ,URINE 3+ (NEGATIVE); NITRITE, URINE POSITIVE (NEGATIVE); PH,URINE 6.5 (5.0-8.0); PROTEIN URINE 1+ (NEGATIVE)
--- NOTE | 2021-04-29 16:21 | NUR ---
PT HAS VOIDED 300ML ORANGE COLORED URINE, STATES HE HAS BEEN TAKING PYRIDIUM AT HOME
[2021-04-29 16:27] LABS: BACTERIA,URINE MANY /HPF (None Seen); WBC,URINE >100 /HPF (0-3)
[2021-04-29 16:28] LABS: CALCIUM OXALATE CRYSTALS,UR None Seen /HPF (None Seen); CALCIUM PHOSPHATE CRYSTALS,UR None Seen /HPF (None Seen); TRICHOMONAS,URINE None Seen /HPF (None Seen); YEAST,URINE None Seen /HPF (None Seen)
[2021-04-29] MEDS ORDERED: PIPERACILLIN/TAZOBACTAM 4.5 GM/VIAL (ZOSYN) IV ONE (16:54)
[2021-04-29] MEDS ORDERED: ONDANSETRON HCL 4 MG/2 ML VIAL IVP ONE (17:00)
[2021-04-29] MEDS ORDERED: PIPERACILLIN/TAZO 4.5 GM in NS 100 ML IV ONE (17:00)
[2021-04-29] MEDS ORDERED: MORPHINE 2 MG/ML INJ. SYRINGE IVP ONE (17:00)
[2021-04-29] MEDS ORDERED: CIPR500T5 PO (17:11)
--- NOTE | 2021-04-29 17:30 | NUR ---
PT RESTING IN BED, AWAKE, ALERT, BREATHING EVEN AND UNLABORED, NO DISTRESS NOTED
[2021-04-29 17:56] VITALS: BP_SYST 131
--- NOTE | 2021-04-29 17:56 | NUR ---
Patient given written and verbal discharge instructions and verbalizes understanding. ER MD discussed with patient the results and treatment provided. Patient in stable condition. ID arm band removed. IV catheter removed intact and dressing applied, no active bleeding. Rx of CIPRO given. Patient educated on pain management and to follow up with PMD. Pain Scale 0/10. Opportunity for questions provided and answered. Medication side effect fact sheet provided.
== END 2021-04-29 17:56 | disposition home or self-care (01) ==
LOC: SED 14:17
DX: N39.0 Urinary tract infection, site not specified (principal); Z88.8 Allergy status to other drugs, medicaments and biological substances; Z79.899 Other long term (current) drug therapy
CPT/HCPCS: 36415; 80048; 81000; 85025; 87086; 96365; 96375; 99284; J2270; J2405; J2543

== ENCOUNTER 2023-12-29 13:58 | Emergency (ER) | payer OTHER, MEDICARE ==
[~2023-12-29] VITALS: Ht 177.8 cm; Wt 86.2 kg
[~2023-12-29 13:58] MED LIST changes: +CIPR500T5 PO
[2023-12-29 18:24] LABS: BASOPHILS # (AUTO) 0.1 K/uL (0.0-0.2); BASOPHILS % (AUTO) 0.7 % (0.0-2.0); EOSINOPHILS # (AUTO) 0.2 K/uL (0.0-0.4); HEMATOCRIT 39.7 % (36-54); HEMOGLOBIN 13.8 g/dL (14.0-18.0); LYMPHOCYTES # (AUTO) 0.6 K/uL (1.0-5.5); LYMPHOCYTES % (AUTO) 6.8 % (20.5-51.5); MEAN CORPUSCULAR HEMOGLOBIN 31 pg (27-31); MEAN CORPUSCULAR HGB CONC 35 % (32-36); MEAN CORPUSCULAR VOLUME 89 fL (79.0-98.0); MONOCYTES # (AUTO) 0.3 K/uL (0.0-1.0); MONOCYTES % (AUTO) 3.1 % (1.7-9.3); NEUTROPHILS # (AUTO) 7.2 K/uL (1.8-7.7); NEUTROPHILS % (AUTO) 86.4 % (40.0-70.0); PLATELET COUNT (AUTO) 184 K/uL (130-430); RED BLOOD CELL COUNT(AUTO) 4.44 MIL/uL (4.2-6.2); RED CELL DISTRIBUTION WIDTH 13.3 % (9.0-15.0); WHITE BLOOD COUNT (AUTO) 8.3 K/uL (4.8-10.8)
[2023-12-29 18:26] LABS: ANION GAP 6 (5-15); CALCIUM 8.7 mg/dL (8.4-11.0); CARBON DIOXIDE 30 mmol/L (23-29); CHLORIDE 105 mmol/L (98-107); CREATININE 1.21 mg/dL (0.55-1.30); GLUCOSE 130 mg/dL (74-106); POTASSIUM 4.4 mmol/L (3.5-5.1); SODIUM SERUM 141 mmol/L (136-145); UREA NITROGEN, BLOOD 30 mg/dL (8-21)
[2023-12-29] MEDS: fentaNYL CITRATE/PF 100 MCG/2 ML AMP IVP ONE (18:47)
[2023-12-29] MEDS: NACL 0.9% 1,000 ML IV ONE (18:47)
[2023-12-29] MEDS: ONDANSETRON HCL 4 MG/2 ML VIAL IVP ONE (18:48)
[2023-12-29 20:08] LABS: BILIRUBIN,URINE NEGATIVE (NEGATIVE); BLOOD, URINE 3+ (NEGATIVE); CLARITY/URINE CLEAR (CLEAR); COLOR,URINE YELLOW (YELLOW); GLUCOSE,URINE NEGATIVE (NEGATIVE); KETONES,URINE NEGATIVE (NEGATIVE); LEUKOCYTE ESTERASE ,URINE NEGATIVE (NEGATIVE); NITRITE, URINE NEGATIVE (NEGATIVE); PROTEIN URINE TRACE (NEGATIVE)
[2023-12-29 20:18] LABS: BACTERIA,URINE FEW /HPF (None Seen); WBC,URINE 0-3 /HPF (0-3)
[2023-12-29 20:19] LABS: MUCUS,URINE 1+ /LPF (None Seen)
[2023-12-29 21:13] VITALS: BP_SYST 117; PULSE 80; RESP 20; TEMP 98.7; O2SAT 96
== END 2023-12-29 21:13 | disposition home or self-care (01) ==
LOC: SED 13:58
DX: M79.661 Pain in right lower leg (principal); M25.551 Pain in right hip; M54.50 Low back pain, unspecified; Z88.8 Allergy status to other drugs, medicaments and biological substances
CPT/HCPCS: 99284; 96374; 96361; 96375; 80048; 81001; 85025; 36415; 72100; 73552; 81000; 81015; J2405; J3010; J7030